=== PATIENT | male | born 1965 | race African-American/Black ===

== ENCOUNTER 2020-02-03 09:57 | Emergency (ER) | payer SELFPAY ==
--- NOTE | 2020-02-03 10:38 | RAD ---
Exam:3 views left hand HISTORY: Fall. Pain. COMPARISON: None FINDINGS: Preserved joint spaces. No fracture, cortical irregularity or periosteal reaction IMPRESSION: No fracture.
== END 2020-02-03 11:04 | disposition home or self-care (01) ==
LOC: NAV ERS 09:57
DX: I10 Essential (primary) hypertension (principal); Z87.891 Personal history of nicotine dependence
CPT/HCPCS: 93005

== ENCOUNTER 2024-06-17 09:25 | Emergency (ER) | payer OTHER ==
[~2024-06-17 09:25] MED LIST: Iopamidol 370 76% 100 ML VIAL ONE
[2024-06-17 09:55] LABS: #Eosinphils 0.1 thou/uL (0.0-0.7); #Lymphocytes 1.6 thou/uL (1.20-3.40); #Neutrophils 4.3 thou/uL (1.40-6.50); %Basophils 0.3 % (0.0-1.0); %Eosinophils 1.3 % (0.0-10.0); %Lymphocytes 23.4 % (21.0-51.0); %Monocytes 13.5 % (0.0-10.0); %Neutrophils 61.4 % (42.0-75.0); Hematocrit 43.1 % (42.0-52.0); Hemoglobin 13.7 g/dL (14.0-18.0); Mean Corpuscular HGB CONC 31.7 g/dL (32.0-36.0); Mean Corpuscular Hemoglobin 27.5 pg (27.0-31.0); Mean Corpuscular Volume 86.6 fl (78.0-98.0); Mean Platelet Volume 7.9 fL (7.4-10.4); Platelet Count 312 10x3/uL (130-400); RBC Distribution Width 12.3 % (11.5-14.5); Red Blood Cell (RBC) Count 4.98 mill/uL (4.70-6.10)
[2024-06-17 10:03] LABS: Prothrombin Time 13.1 sec (12.0-14.7)
[2024-06-17 10:04] LABS: PTT 27.1 sec (22.9-36.1)
[2024-06-17 10:09] LABS: Anion Gap 15 mmol/L (10-20); BUN (Urea Nitrogen) 17 mg/dL (8.4-25.7); Calc. Creatinine Clearance 0 mL/min (70-130); Calcium 10.7 mg/dL (7.8-10.44); Carbon Dioxide 21 mmol/L (22-29); Chloride 106 mmol/L (98-107); Estimated GFR 88; Glucose 104 mg/dL (70-105); Potassium 4.2 mmol/L (3.5-5.1); Sodium 138 mmol/L (136-145)
[2024-06-17 10:13] LABS: Troponin I Less than 0.010 ng/mL (< 0.028)
== END 2024-06-17 10:56 | disposition home or self-care (01) ==
LOC: NAV ERS 09:25
DX: I10 Essential (primary) hypertension (principal); Z87.891 Personal history of nicotine dependence
CPT/HCPCS: 70450; 70496; 70498; 80048; 84484; 85025; 85610; 85730; 93005; Q9967

== ENCOUNTER 2024-09-12 08:25 | Emergency (ER) | payer OTHER ==
[2024-09-12] MEDS ORDERED: Sodium Chloride 0.9% 1,000 ML ONE (08:49)
[2024-09-12 09:10] LABS: #Lymphocytes 1.2 thou/uL (1.20-3.40); #Monocytes 2.2 thou/uL (0.11-0.59); #Neutrophils 5.7 thou/uL (1.40-6.50); %Basophils 0.3 % (0.0-1.0); %Eosinophils 0.2 % (0.0-10.0); %Lymphocytes 13.6 % (21.0-51.0); %Monocytes 23.9 % (0.0-10.0); Hematocrit 42.7 % (42.0-52.0); Hemoglobin 13.3 g/dL (14.0-18.0); Manual Diff?? NO; Mean Corpuscular Hemoglobin 26.3 pg (27.0-31.0); Mean Corpuscular Volume 84.9 fl (78.0-98.0); Mean Platelet Volume 8.5 fL (7.4-10.4); Platelet Count 241 10x3/uL (130-400); RBC Distribution Width 12.2 % (11.5-14.5); Red Blood Cell (RBC) Count 5.04 mill/uL (4.70-6.10); White Blood Cell (WBC) Count 9.1 10x3/uL (4.8-10.8)
[2024-09-12 09:27] LABS: ALT (SGPT) 15 U/L (8-55); AST (SGOT) 18 U/L (5-34); Albumin 3.9 g/dL (3.5-5.0); Alkaline Phosphatase 60 U/L (40-110); Anion Gap 16 mmol/L (10-20); BUN (Urea Nitrogen) 14 mg/dL (8.4-25.7); Bilirubin, Total 0.5 mg/dL (0.2-1.2); Calc. Creatinine Clearance 0 mL/min (70-130); Calcium 10.1 mg/dL (7.8-10.44); Carbon Dioxide 21 mmol/L (22-29); Chloride 104 mmol/L (98-107); Estimated GFR 69; Globulin 4.6 g/dL (2.4-3.5); Glucose 97 mg/dL (70-105); Lipase 26 U/L (8-78); Protein, Total 8.5 g/dL (6.0-8.3); Sodium 137 mmol/L (136-145)
== END 2024-09-12 09:45 | disposition home or self-care (01) ==
LOC: NAV ERS 08:25
DX: R19.7 Diarrhea, unspecified (principal); R10.9 Unspecified abdominal pain; Z87.891 Personal history of nicotine dependence
CPT/HCPCS: 80053; 83690; 85025; 87428; 99284; J7030